=== PATIENT | male | born 1945 | race Caucasian/White ===

== ENCOUNTER → 2017-11-23 12:43 | Outpatient (BNVA) | payer MEDICARE, SELFPAY | PROVIDERS: PCP Internal Medicine; Visit Provider Nurse Practitioner Adult Health | DX: R51 Headache (principal); F07.81 Postconcussional syndrome; I10 Essential (primary) hypertension | CPT/HCPCS: 64405; 99204; 99214; 99215 ==

== ENCOUNTER → 2017-12-07 08:24 | Outpatient (BNVA) | payer MEDICARE, SELFPAY | PROVIDERS: Visit Provider Nurse Practitioner Adult Health | DX: R51 Headache (principal); G44.309 Post-traumatic headache, unspecified, not intractable; M54.2 Cervicalgia; G89.29 Other chronic pain; I10 Essential (primary) hypertension | CPT/HCPCS: 64405; 99213 ==

== ENCOUNTER 2018-03-16 11:00 | Outpatient (REF) | payer MEDICARE, SELFPAY ==
[2018-03-16 18:51] LABS: HCT 47.4 % (40.0-50.0); HGB 15.6 g/dL (13.5-17.5); Mean Corp. HGB Concentration 32.9 g/dL (32.0-36.0); Mean Corpuscular Hemoglobin 30.9 pg (27.0-33.0); Mean Corpuscular Volume 93.9 fL (80-95); Mean Platelet Volume 10.6 fL (8.0-11.0); Platelet Count 189 x1000/uL (130-400); RBC 5.05 m/cumm (4.50-6.00); RBC Distribution Width 12.8 % (11.8-14.1); White Blood Cell Count 7.26 k/cumm (4.4-10.8)
[2018-03-16 19:21] LABS: Albumin 3.8 g/dL (3.4-5.0); Anion Gap 7.1 mmol/L (3-11); BUN 21 mg/dL (7-18); CO2 27.9 mmol/L (21.0-32.0); CREATININE 1.35 mg/dL (0.70-1.30); Chloride 107 mmol/L (98-107); Glucose 88 mg/dL (70-100); LDL CHOLESTEROL 64 mg/dL (<100); Potassium 4.6 mmol/L (3.5-5.1); Sodium 142 mmol/L (136-145)
== END 2018-03-16 11:20 ==
LOC: NCHCN 11:00
PROVIDERS: PCP Internal Medicine; Visit Provider Internal Medicine
DX: E78.5 Hyperlipidemia, unspecified (principal); I10 Essential (primary) hypertension; R51 Headache; N17.9 Acute kidney failure, unspecified; M60.222 Foreign body granuloma of soft tissue, not elsewhere classified, left upper arm
CPT/HCPCS: 80069; 83721; 85027

== ENCOUNTER 2019-05-28 13:37 | Outpatient (REF) | payer MEDICARE, SELFPAY ==
[2019-05-28 19:03] LABS: HCT 47.5 % (40.0-50.0); HGB 15.9 g/dL (13.5-17.5); Mean Corp. HGB Concentration 33.5 g/dL (32.0-36.0); Mean Corpuscular Hemoglobin 31.2 pg (27.0-33.0); Mean Corpuscular Volume 93.1 fL (80-95); Mean Platelet Volume 11.2 fL (8.0-11.0); Platelet Count 176 x1000/uL (130-400); RBC Distribution Width 12.6 % (11.8-14.1); White Blood Cell Count 7.16 k/cumm (4.4-10.8)
[2019-05-28 19:24] LABS: ALT 40 U/L (16-63); Anion Gap 9.7 mmol/L (3-11); BUN 19 mg/dL (7-18); CO2 27.3 mmol/L (21.0-32.0); CREATININE 1.15 mg/dL (0.70-1.30); Calcium 8.6 mg/dL (8.5-10.1); Chloride 106 mmol/L (98-107); Glucose 131 mg/dL (74-106); Potassium 4.3 mmol/L (3.5-5.1); Sodium 143 mmol/L (136-145)
[2019-05-30 10:35] LABS: PSA, Diagnostic 1.4 ng/mL (0.0-6.5)
== END 2019-05-28 13:57 ==
LOC: NCHCN 13:37
PROVIDERS: PCP Internal Medicine; Visit Provider Internal Medicine
DX: E78.5 Hyperlipidemia, unspecified (principal); N18.3 Chronic kidney disease, stage 3 (moderate); Z85.46 Personal history of malignant neoplasm of prostate; M60.222 Foreign body granuloma of soft tissue, not elsewhere classified, left upper arm
CPT/HCPCS: 80048; 82533; 85027; 84153; 84460

== ENCOUNTER 2020-04-17 20:29 | Outpatient (REF) | payer MEDICARE, SELFPAY ==
[2020-04-17 19:11] LABS: HCT 46.6 % (40.0-50.0); HGB 15.3 g/dL (13.5-17.5); MCH 30.4 pg (27.0-33.0); MCHC 32.8 % (32.0-36.0); MCV 92.6 fL (80-95); MPV 10.7 fL (8.0-11.0); Platelet Count 179 10^3/uL (130-400); RBC 5.03 10^6/uL (4.36-5.78); RDW 11.9 % (11.8-14.1); WBC 6.57 10^3/uL (4.4-10.8)
[2020-04-17 19:35] LABS: Anion Gap 6.3 mmol/L (3-11); BUN 18 mg/dL (7-18); CO2 30.7 mmol/L (21.0-32.0); CREATININE 1.3 mg/dL (0.70-1.30); Calcium 9.2 mg/dL (8.5-10.1); Chloride 106 mmol/L (98-107); Estimated GFR 54.11 (mL/min/1.73m2); Glucose 126 mg/dL (74-106); Potassium 4.9 mmol/L (3.5-5.1); Sodium 143 mmol/L (136-145); TSH 0.49 uIU/mL (0.36-3.74)
[2020-04-18 18:08] LABS: PSA, Diagnostic 2.2 ng/mL (0.0-6.5)
== END 2020-04-17 20:30 | disposition home or self-care (01) ==
LOC: NCHCN 20:29
PROVIDERS: PCP Internal Medicine; Visit Provider Internal Medicine
DX: I10 Essential (primary) hypertension (principal); R19.5 Other fecal abnormalities; Z85.46 Personal history of malignant neoplasm of prostate; F32.9 Major depressive disorder, single episode, unspecified
CPT/HCPCS: 80048; 85027; 84153; 84443

== ENCOUNTER 2020-06-20 03:50 | Outpatient (CLI) | payer MEDICARE, SELFPAY ==
--- NOTE | 2020-06-20 | DI.CT_ITS ---
EXAM: CT CHEST/ABD/PEL W CLINICAL HISTORY: PROSTATE CA,C61,STAGING EXAM TECHNIQUE: Imaging Protocol: Axial computed tomography images with coronal and sagittal reformatted images were created and reviewed CONTRAST MATERIAL: Intravenous: Visipaque 320 contrast volume:100 mL Oral: Yes COMPARISON: No exams were available for comparison FINDINGS: CHEST: Tracheobronchial tree: Patent where visualized. Pulmonary parenchyma: No consolidation or dominant measurable mass. No architectural distortion. Atel ectasis in the lung bases. No pulmonary nodules. Visualized thyroid gland: Unremarkable. Mediastinum and Bailey: No dominant adenopathy or fluid collection. Pleura: No effusion or pneumothorax. Heart: The heart is not dilated. Moderate coronary artery calcification. No pericardial effusion. Aorta: Thoracic aorta non-dilated. Atherosclerosis. Lymph nodes: Within normal limits. Soft tissues: Unremarkable. Bones:Normal. ABDOMEN: Liver: Normal density. No measurable mass. Portal, Superior Mesenteric, and Splenic Veins: Unremarkable. Gallbladder and Biliary Tract: No radiodense calculus or dilation. Pancreas: Normal density, no abnormal calcifications or inflammatory process. Spleen: Normal. Adrenals: No masses seen. Kidneys: There is a solitary left kidney. No radiodense stones or obstructive uropathy. There are sev eral simple left renal cysts. The largest measures 3.7 cm. Abdominal Aorta: Abdominal portion non-dilated. Atherosclerosis. Bowel: No obstruction or bowel wall thickening. No evidence of appendicitis. Sigmoid diverticulosis b ut no evidence of acute diverticulitis. Peritoneal Cavity: No ascites, collection or mesenteric inflammatory response. No free air. Lymph Nodes: Within normal limits. Bones: Age-related degenerative changes are seen in the lumbar spine and pelvis. The findings are mos t marked at T9-T10, L2-L3 and L3-L4. No suspicious lytic or sclerotic lesions are seen to suggest oss eous metastatic disease. Soft Tissues: Unremarkable. PELVIS: Bladder: Symmetric distention, no gross wall thickening. Reproductive Organs: Unremarkable as visualized. Lymph Nodes: Within normal limits. Bones: No evidence of osseous metastatic disease. IMPRESSION: 1. No evidence of abdominal or pelvic metastatic disease. No evidence of osseous metastatic disease. 2. Solitary left kidney. 3. No evidence of thoracic metastatic disease. RADIATION DOSE DELIVERED: 1,522.58mGy.cm Total DLP DATA REPOSITORY: All CT scans at this facility are submitted to the National Radiology Data Registry (NRDR) Dose Index Registry (DIR) with the [employer] (A[employer]). RADIATION OPTIMIZATION: All CT scans at this facility use at least one of these dose optimization te chniques: automated exposure control; mA and/or kV adjustment per patient size (includes targeted exa ms where dose is matched to clinical indication); or iterative reconstruction.
[2020-06-20] MEDS: Breeza Beverage 473 ML BTL PO ×2 (07:53→07:54)
[2020-06-20] MEDS: Omnipaque 350 MG/ML 50 ML BTL PO (07:54)
--- NOTE | 2020-06-20 08:00 | DI.NM_ITS ---
EXAM: NM BONE SCAN WHOLE BODY GRP CLINICAL HISTORY: PROSTATE CA, C61, STAGING EXAM. TECHNIQUE: Injected Dose: 25 mCi Tc-99m MDP Delayed Images: 2-3 hours. COMPARISON: CT CT CHEST/ABD/PEL W from 06/20/2020 FINDINGS: Symmetric axial uptake. Bilateral renal excretion is identified. There are areas of increased uptake seen in the left aspect at the L2-3 and L3-4 disc levels and the T9-10 disc level consistent with deg enerative changes seen on the CT scan of the chest abdomen and pelvis from 06/20/2020. There is symmet eloise uptake in the shoulders suggesting degenerative changes. No suspicious axial or appendicular upt chadwcik is seen to suggest osseous metastatic disease. IMPRESSION: 1. No evidence of metastatic disease. DATA REPOSITORY:
[2020-06-20 08:19] LABS: CREATININE 1.3 mg/dL (0.70-1.30); Estimated GFR 54.11 (mL/min/1.73m2)
[2020-06-20] MEDS: Normal Saline - Diluent 50 ML VIAL IV (09:10)
== END 2020-06-20 04:10 ==
PROVIDERS: PCP Internal Medicine; Visit Provider Internal Medicine
DX: C61 Malignant neoplasm of prostate (principal); Z12.89 Encounter for screening for malignant neoplasm of other sites
CPT/HCPCS: 74177; 78306; 71260; 82565; Q9967

== ENCOUNTER 2020-07-14 22:38 | Outpatient (REF) | payer MEDICARE, SELFPAY ==
[2020-07-14 16:31] LABS: Bilirubin Negative (Negative); Blood Negative (Negative); Clarity Clear (Clear); Glucose Negative (Negative); Ketones Trace mg/dL (Negative); Leukocyte Esterase Negative (Negative); Nitrite Negative (Negative); Specific Gravity 1.025 (1.005-1.025); Urobilinogen 0.2 EU/dL (Up TO 0.2)
[2020-07-14 16:34] LABS: Bacteria Negative HPF (Negative); C & S Indicated? No; Casts Negative LPF (Negative); Crystals Negative HPF (Negative); Epithelial Cells Few HPF (Negative); Mucus Negative (Negative); Other Cells Negative (Negative); RBC 0-2 HPF (0-2); WBC 0-2 HPF (0-5)
== END 2020-07-14 22:39 | disposition home or self-care (01) ==
LOC: NCHCN 22:38
PROVIDERS: PCP Internal Medicine; Visit Provider Internal Medicine
DX: R82.998 Other abnormal findings in urine (principal); C61 Malignant neoplasm of prostate
CPT/HCPCS: 81003; 81015

== ENCOUNTER 2020-10-15 19:44 | Outpatient (REF) | payer MEDICARE, SELFPAY ==
[2020-10-16 17:34] LABS: PSA, Diagnostic 2.5 ng/mL (0.0-6.5)
== END 2020-10-15 19:45 | disposition home or self-care (01) ==
LOC: NCHCN 19:44
PROVIDERS: PCP Internal Medicine; Visit Provider Internal Medicine
DX: C61 Malignant neoplasm of prostate (principal)
CPT/HCPCS: 84153

== ENCOUNTER 2021-01-14 17:05 | Outpatient (REF) | payer MEDICARE, SELFPAY ==
[2021-01-15 08:03] LABS: ALT 42 U/L (16-63); Anion Gap 7.2 mmol/L (3-11); BUN 24 mg/dL (7-18); CO2 29.8 mmol/L (21.0-32.0); CREATININE 1.4 mg/dL (0.70-1.30); Calcium 9.2 mg/dL (8.5-10.1); Chloride 107 mmol/L (98-107); Estimated GFR 49.54 (mL/min/1.73m2); Glucose 67 mg/dL (74-106); LDL CHOLESTEROL 70 mg/dL (<100); Sodium 144 mmol/L (136-145)
[2021-01-15 19:48] LABS: PSA, Diagnostic 2.4 ng/mL (0.0-6.5)
== END 2021-01-14 17:06 | disposition home or self-care (01) ==
LOC: NCHCN 17:05
PROVIDERS: PCP Internal Medicine; Visit Provider Internal Medicine
DX: I10 Essential (primary) hypertension (principal); C61 Malignant neoplasm of prostate; R51.9 Headache, unspecified
CPT/HCPCS: 80048; 83721; 84153; 84460

== ENCOUNTER 2021-07-01 18:45 | Outpatient (REF) | payer MEDICARE, SELFPAY | END 2021-07-01 18:46 | disposition home or self-care (01) | LOC: NCHCN 18:45 | PROVIDERS: PCP Internal Medicine; Visit Provider Internal Medicine | DX: F32.9 Major depressive disorder, single episode, unspecified (principal); C61 Malignant neoplasm of prostate | CPT/HCPCS: 84153 ==

== ENCOUNTER 2021-12-31 15:32 | Outpatient (REF) | payer MEDICARE, SELFPAY ==
[2021-12-31 19:18] LABS: HCT 47.2 % (40.0-50.0); HGB 15.6 g/dL (13.5-17.5); MCH 31.3 pg (27.0-33.0); MCHC 33.1 % (32.0-36.0); MCV 95 fL (80-95); MPV 10.7 fL (8.0-11.0); Platelet Count 162 10^3/uL (130-400); RBC 4.98 10^6/uL (4.36-5.78); RDW 12.1 % (11.8-14.1); RDW-SD 41.8 fL; WBC 8.14 10^3/uL (4.4-10.8)
[2021-12-31 19:47] LABS: ALT 46 U/L (16-63); Anion Gap 8.1 mmol/L (3-11); BUN 16 mg/dL (7-18); CO2 26.9 mmol/L (21.0-32.0); CREATININE 1.5 mg/dL (0.70-1.30); Calcium 9.2 mg/dL (8.5-10.1); Calculated LDL 81 mg/dL (<100); Chloride 105 mmol/L (98-107); Cholesterol 186 mg/dL (<200); Estimated GFR 48.25 (mL/min/1.73m2); Glucose 118 mg/dL (74-106); HDL Cholesterol 59 mg/dL (40-60); Potassium 4.1 mmol/L (3.5-5.1); Sodium 140 mmol/L (136-145); Triglyceride 230 mg/dL (<150)
[2021-12-31 19:59] LABS: Creatine Kinase 106 U/L (39-308)
[2022-01-01 19:51] LABS: PSA, Diagnostic 3.4 ng/mL (<=6.5)
== END 2021-12-31 15:33 | disposition home or self-care (01) ==
LOC: NCHCN 15:32
PROVIDERS: PCP Internal Medicine; Visit Provider Internal Medicine
DX: N18.30 Chronic kidney disease, stage 3 unspecified (principal); E78.5 Hyperlipidemia, unspecified; C61 Malignant neoplasm of prostate
CPT/HCPCS: 80048; 80061; 82550; 85027; 84153; 84460

== ENCOUNTER 2023-01-12 20:20 | Outpatient (REF) | payer MEDICARE, SELFPAY ==
[2023-01-12 21:31] LABS: ALT 45 U/L (16-63); Anion Gap 6.6 mmol/L (3-11); BUN 22 mg/dL (7-18); CO2 29.4 mmol/L (21.0-32.0); CREATININE 1.5 mg/dL (0.70-1.30); Calcium 9.5 mg/dL (8.5-10.1); Calculated LDL 51 mg/dL (<100); Chloride 105 mmol/L (98-107); Cholesterol 148 mg/dL (<200); Estimated GFR 47.95 (mL/min/1.73m2); Glucose 128 mg/dL (74-106); HDL Cholesterol 54 mg/dL (40-60); Potassium 4.5 mmol/L (3.5-5.1); Sodium 141 mmol/L (136-145); Triglyceride 215 mg/dL (<150)
[2023-01-12 21:46] LABS: Creatine Kinase 148 U/L (39-308)
[2023-01-13 20:38] LABS: PSA, Diagnostic 4.7 ng/mL (<=6.5)
== END 2023-01-12 20:21 | disposition home or self-care (01) ==
LOC: NCHCN 20:20
PROVIDERS: PCP Internal Medicine; Visit Provider Internal Medicine
DX: M75.102 Unspecified rotator cuff tear or rupture of left shoulder, not specified as traumatic (principal); C61 Malignant neoplasm of prostate; G56.01 Carpal tunnel syndrome, right upper limb
CPT/HCPCS: 80048; 80061; 82550; 84153; 84460

== ENCOUNTER 2023-07-22 12:06 | Outpatient (REF) | payer MEDICARE, SELFPAY ==
[2023-07-22 20:00] LABS: ALT 42 U/L (16-63); Anion Gap 9.3 mmol/L (3-11); BUN 29 mg/dL (7-18); CO2 25.7 mmol/L (21.0-32.0); CREATININE 1.4 mg/dL (0.70-1.30); Calcium 9.4 mg/dL (8.5-10.1); Calculated LDL 67 mg/dL (<100); Chloride 104 mmol/L (98-107); Cholesterol 160 mg/dL (<200); Estimated GFR 51.77 (mL/min/1.73m2); Glucose 124 mg/dL (74-106); HDL Cholesterol 64 mg/dL (40-60); Potassium 4.5 mmol/L (3.5-5.1); Sodium 139 mmol/L (136-145); Triglyceride 147 mg/dL (<150)
[2023-07-22 20:21] LABS: Creatine Kinase 177 U/L (39-308)
[2023-07-25 10:57] LABS: PSA, Diagnostic 6.3 ng/mL (<=6.5)
== END 2023-07-22 12:07 | disposition home or self-care (01) ==
LOC: NCHCN 12:06
PROVIDERS: PCP Internal Medicine; Visit Provider Internal Medicine
DX: I10 Essential (primary) hypertension (principal); C61 Malignant neoplasm of prostate
CPT/HCPCS: 80048; 80061; 82550; 84153; 84460

== ENCOUNTER 2023-08-11 19:14 | Outpatient (REF) | payer MEDICARE, SELFPAY ==
--- NOTE | 2023-08-11 14:00 | SKI_PTH ---
PATIENT: Jason Hernandez LOC: [facility] U#:[id number] AGE/SX: 78/M ROOM: RE08/11/[address]: Jovan Austin : 1945 BED: DIS: 08/11/2023 SPEC #: [id number] RECD: 08/12/23 10:08 STATUS: STEPHAN PERERA #: [id number] DELORES: 08/11/23 14:[address]: Jovan Austin DEPT: Surgical Specimen RECD BY: Angela Bacon Tissues: 1 - SKIN BIOPSY(SHAVE/PUNCH) Procedures: SKIN LEVEL 4 Comments: [id number]
== END 2023-08-11 19:15 | disposition home or self-care (01) ==
LOC: NCHCN 19:14
PROVIDERS: PCP Internal Medicine; Visit Provider Internal Medicine
DX: D22.5 Melanocytic nevi of trunk (principal); L81.4 Other melanin hyperpigmentation
CPT/HCPCS: 88305

== ENCOUNTER 2023-09-21 15:46 | Outpatient (CLI) | payer MEDICARE, SELFPAY ==
--- NOTE | 2023-09-21 06:00 | DI.RAD_ITS ---
Exam(s) XR PAIN CLINIC SACRIOILIAC 2V EXAM: XR PAIN CLINIC SACRIOILIAC 2V CLINICAL HISTORY: Sacroiliac Joint Dysfunction. TECHNIQUE: Fluoroscopy was provided for the referring physician for guidance with performing pain cl inic injection procedure. COMPARISON: No exams were available for comparison FINDINGS: Please see procedure note for details. Fluoro time: 77.2 seconds RADIATION DOSE DELIVERED: Ka,r=22.98 mGy
[2023-09-21 16:00] VITALS: BP 143/67; PULSE 84; RESP 20; TEMP 37.1; O2SAT 97
--- NOTE | 2023-09-21 16:33 | PDOC.PAIN ---
Date of service: 09/21/23 Time of Service: 16:33 Pain Managment Procedure Note Procedure Note Procedure Note: PROCEDURE NOTE BILATERAL INTRA-ARTICULAR SACROILIAC JOINT INJECTION Date of Service: September 21, 2023 Patient: Jason Hernandez Provider: Ayaan Núñez DO, MPH COMMENTS: I previously evaluated the patient in the office and their symptoms in relation to the sacroiliac joint pain have remained the same. Pre-operative diagnosis: Sacroiliac joint dysfunction Post-operative diagnosis: Same Pre-procedure pain: VAS= 7/10 Jason Hernandez has been referred to [facility] for a Bilateral intra-articular Sacroiliac joint injection. Al was interviewed and the medical record reviewed. There were no medical, pharmacologic, radiographic or other structural contraindications to attempting a fluoroscopically-guided, contrast-enhanced, intra-articular Sacroiliac joint injection. The risks, benefits, and potential side effects of this procedure were reviewed with the patient. Questions and concerns were addressed. After it was clear that Al was fully informed about the procedure, the printed consent form was signed by the patient and myself. Al was placed in the prone position on the fluoroscopy table and an automated blood pressure cuff, 3 lead EKG, and pulse oximeter were applied. The skin entry point for approaching the Left sacroiliac joint was identified under the most advantageous fluoroscopic view and marked. Following thorough Chlorhexadine preparation of the skin and draping with sterile surgical drapes, 2 mls of 1% lidocaine was infiltrated into the skin at the entry point and the surrounding subcutaneous tissues. Next, a 3.5 22G spinal needle was placed under fluoroscopic guidance into the Left sacroiliac joint. Intra-articular placement was confirmed by a clear arthrogram resulting from the injection of 0.25ml of Omnipaque-240. Next, 1 ml of Depo- Medrol 40 mg/ml was injected intra-articularly with an initial reproduction of a significant component of the usual pain. This was followed with 1 ml of 1% Lidocaine. The needle was then removed without difficulty. (49 ml of Omnipaque-240 was wasted). The exact procedure was completed on the opposite sacroiliac joint. Al's vital signs were stable throughout the procedure and were as recorded in nursing records. Follow up plans and appointments were discussed with Al. Post procedure instructions were given as documented in nursing records. Having met discharge criteria, Al was [facility] COMMENTS: Post-procedure pain: VAS= 0/10. If the patient receives at least 50% improvement in pain and/or function for at least 3 months, this procedure can be repeated if needed. I personally performed this entire procedure. AYAAN NÚÑEZ DO, MPH ABPMR-subspecialty board certification in Pain Medicine [facility]
[2023-09-21 16:40] VITALS: BP 152/91; PULSE 71; RESP 16; O2SAT 95
[2023-09-21] MEDS: Omnipaque 240 MG/ML 50 ML BTL IJ (16:41)
[2023-09-21] MEDS: Nerve Block Tray 1 EACH MC (16:41)
[2023-09-21] MEDS: methylPREDNISolone ACETATE 80 MG/ML VIAL IJ (16:42)
== END 2023-09-21 15:47 | disposition home or self-care (01) ==
LOC: PC 15:49
PROVIDERS: PCP Internal Medicine; Visit Provider Preventive Medicine Occupational Medicine
DX: M54.50 Low back pain, unspecified (principal); M46.1 Sacroiliitis, not elsewhere classified
CPT/HCPCS: 27096; 72200; J1010; Q9967

== ENCOUNTER 2023-11-03 17:06 | Outpatient (REF) | payer MEDICARE, SELFPAY | END 2023-11-03 17:07 | disposition home or self-care (01) | LOC: NCHCN 17:06 | PROVIDERS: PCP Internal Medicine; Visit Provider Internal Medicine | DX: R82.998 Other abnormal findings in urine (principal); N18.30 Chronic kidney disease, stage 3 unspecified | CPT/HCPCS: 87086 ==

== ENCOUNTER 2024-10-24 14:24 | Outpatient (REF) | payer MEDICARE, SELFPAY ==
[2024-10-24 20:38] LABS: HCT 44.2 % (40.0-50.0); HGB 14.5 g/dL (13.5-17.5); MCH 30.5 pg (27.0-33.0); MCHC 32.8 % (32.0-36.0); MCV 93 fL (80-95); MPV 11.2 fL (8.0-11.0); Platelet Count 175 10^3/uL (130-400); RBC 4.75 10^6/uL (4.36-5.78); RDW 12.3 % (11.8-14.1); RDW-SD 42.5 fL; WBC 6.11 10^3/uL (4.4-10.8)
[2024-10-24 20:55] LABS: ALT 34 U/L (16-63); Anion Gap 9.0 mmol/L (3-11); BUN 23 mg/dL (7-18); CO2 25.0 mmol/L (21.0-32.0); Calcium 9.1 mg/dL (8.5-10.1); Chloride 109 mmol/L (98-107); Creatine Kinase 149 U/L (39-308); Estimated GFR 56.23 (mL/min/1.73m2); Glucose 106 mg/dL (74-106); NT-proBNP 105 pg/mL (<300); Potassium 4.1 mmol/L (3.5-5.1); Sodium 143 mmol/L (136-145)
[2024-10-24 21:07] LABS: Calculated LDL 55 mg/dL (<100); Cholesterol 136 mg/dL (<200); HDL Cholesterol 45 mg/dL (>or=40); Triglyceride 181 mg/dL (<150)
== END 2024-10-24 14:25 | disposition home or self-care (01) ==
LOC: NCHCN 14:24
PROVIDERS: PCP Internal Medicine; Visit Provider Internal Medicine
DX: E78.5 Hyperlipidemia, unspecified (principal); I73.9 Peripheral vascular disease, unspecified; R53.83 Other fatigue
CPT/HCPCS: 80048; 80061; 82550; 85027; 83880; 84460